=== PATIENT | male | born 1990 | race Caucasian/White ===

== ENCOUNTER → 2022-01-24 | Outpatient (REF) | payer OTHER ==
[2022-01-24 10:30] LABS: SEMEN APPEARANCE OPAQUE (OPAQUE); SEMEN VISCOSITY LIQUID (LIQUID); SEMEN VOLUME 1.4 ML (2.0-5.0); SEMEN WBC >1 M/ml (<=1 M/ml)
== END ==
LOC: M LAB REF 10:08
PROVIDERS: ATTEND Physician Assistant
DX: N46.9 Male infertility, unspecified (principal)

== ENCOUNTER → 2022-05-29 | Outpatient (CLI) | payer OTHER | LOC: M RAD 12:42 | PROVIDERS: ATTEND Physician Assistant | DX: N46.01 Organic azoospermia (principal) ==

== ENCOUNTER → 2022-07-10 | Outpatient (REF) | payer OTHER ==
[2022-07-10 14:14] LABS: SEMEN APPEARANCE OPAQUE (OPAQUE); SEMEN VISCOSITY LIQUID (LIQUID); SEMEN WBC <=1 M/ml (<=1 M/ml)
== END ==
LOC: M LAB REF 12:45
PROVIDERS: ATTEND Obstetrics & Gynecology Reproductive Endocrinology
DX: N46.9 Male infertility, unspecified (principal)

== ENCOUNTER 2023-05-12 11:23 | Emergency (ER) | payer OTHER ==
[~2023-05-12] VITALS: Ht 177.8 cm; Wt 87.2 kg
[2023-05-12] MEDS ORDERED: FLUO40CA (11:57)
[2023-05-12] MEDS ORDERED: TRAZ-252 (11:57)
[2023-05-12 12:53] LABS: RSV AMPLIFICATION NEGATIVE (NEGATIVE)
[2023-05-12 15:35] VITALS: BP 137/85; TEMP 97.7; O2SAT 100
[2023-05-12] MEDS ORDERED: ONDANSETRON 4MG ORAL DISINTEGRATING TAB PO ONE (16:15)
[2023-05-12] MEDS ORDERED: PROM25TA12 PO (16:24)
== END 2023-05-12 16:34 | disposition home or self-care (01) ==
LOC: M ED 11:23
DX: Z20.822 Contact with and (suspected) exposure to COVID-19 (principal); B34.9 Viral infection, unspecified; Z79.899 Other long term (current) drug therapy; Z79.83 Long term (current) use of bisphosphonates

== ENCOUNTER → 2023-10-28 | Outpatient (CLI) | payer OTHER ==
[~2023-10-28] MED LIST: FLUO40CA; PROM25TA12 PO; TRAZ-252
== END ==
LOC: M WHC 07:43
PROVIDERS: ATTEND Physician Assistant
DX: N64.51 Induration of breast (principal); N64.4 Mastodynia; N62 Hypertrophy of breast
CPT/HCPCS: 77066; G0279